=== PATIENT | male | born 1975 | race African-American/Black ===

== ENCOUNTER 2017-03-12 03:00 | Emergency (ER) | payer SELFPAY ==
[~2017-03-12] VITALS: Ht 157.5 cm; Wt 75.0 kg
[~2017-03-12 03:00] MED LIST: AMLO10 PO; HYDR-2768 PO; RIVA10 PO
[2017-03-12 03:01] VITALS: BP 156/111; PULSE 101; RESP 16; TEMP 98; O2SAT 97
[2017-03-12 03:15] VITALS: O2SAT 99
[2017-03-12 03:17] VITALS: BP 151/116; PULSE 100; RESP 16; O2SAT 96
[2017-03-12] MEDS ORDERED: SODIUM CHLORIDE 0.9% FLUSH 10 ML FLUSH IVF PRN ×2 (04:00)
[2017-03-12 04:31] LABS: AUTOMATED NEUTROPHIL # 3.8 TH/MM3 (1.8-7.7); BASOPHIL % 0.7 % (0.0-2.0); EOSINOPHIL # 0.4 TH/MM3 (0-0.4); EOSINOPHIL % 5.2 % (0.0-4.0); HEMATOCRIT 40.6 % (39.0-51.0); HEMOGLOBIN 13.1 GM/DL (13.0-17.0); LYMPHOCYTE # 2.4 TH/MM3 (1.0-4.8); MEAN CELL VOLUME 78.2 FL (80.0-100.0); MEAN CORPUSCULAR HEMOGLOBIN 25.3 PG (27.0-34.0); MEAN CORPUSCULAR HGB CONC 32.4 % (32.0-36.0); MEAN PLATELET VOLUME 9.6 FL (7.0-11.0); MONO % 3.7 % (0.0-8.0); MONOCYTE # 0.3 TH/MM3 (0-0.9); NEUT % 55.4 % (16.0-70.0); PLATELET COUNT 334 TH/MM3 (150-450); RED BLOOD COUNT 5.19 MIL/MM3 (4.50-5.90); RED CELL DISTRIBUTION WIDTH 16.8 % (11.6-17.2); WHITE BLOOD COUNT 6.8 TH/MM3 (4.0-11.0)
[2017-03-12 04:42] LABS: ALBUMIN 3.9 GM/DL (3.4-5.0); AST (GOT) 35 U/L (15-37); BICARBONATE 25.2 MEQ/L (21.0-32.0); BLOOD UREA NITROGEN 18 MG/DL (7-18); CALCIUM 9.5 MG/DL (8.5-10.1); CHLORIDE 105 MEQ/L (98-107); GLOMERULAR FILTRATION RATE 90 ML/MIN (>89); GLUCOSE,RANDOM 100 MG/DL (74-106); SODIUM (NA) 139 MEQ/L (136-145)
[2017-03-12 04:43] LABS: ALT (GPT) 100 U/L (12-78)
[2017-03-12 04:47] LABS: ALKALINE PHOSPHATASE 93 U/L (45-117); TOTAL BILIRUBIN ADULT 0.4 MG/DL (0.2-1.0); TOTAL PROTEIN 7.9 GM/DL (6.4-8.2); TROPONIN I 0.05 NG/ML (0.02-0.05)
--- NOTE | 2017-03-12 04:52 | RADRPT ---
EXAM DATE/TIME: 03/12/2017 04:03 [facility] COMPARISON: CHEST SINGLE AP, August 20, 2014, 12:55. INDICATIONS : Chest pain. MEDICAL HISTORY : None. SURGICAL HISTORY : None. ENCOUNTER: Initial ACUITY: 2 days PAIN SCORE: 9/10 LOCATION: Bilateral chest FINDINGS: Hazy parenchymal opacities are seen fairly diffusely of both lungs, left slightly worse and right. Th ere is mild cardiomegaly. I don't see a large effusion. No pneumothorax. CONCLUSION: Bilateral hazy infiltrates, probably on the basis of mild failure versus atypical pneumonia. John Rubalcava MD on March 12, 2017 at 4:50 Board Certified Radiologist. This report was verified electronically.
[2017-03-12] MEDS ORDERED: FUROSEMIDE 40 MG/4 ML VIAL IV PUSH ONE ×2 (05:15)
[2017-03-12 05:19] VITALS: BP_SYST 141; BP_SYST 148; BP_DIAS 103; BP_DIAS 113; PULSE 102; RESP 18; O2SAT 95
[2017-03-12] MEDS ORDERED: FURO1TAB62 PO ×2 (05:20)
[2017-03-12] MEDS ORDERED: LISI40TA PO ×2 (05:20)
[2017-03-12] MEDS ORDERED: HYDR-3799 PO ×2 (05:20)
[2017-03-12] MEDS ORDERED: CARV3.12 PO ×2 (05:20)
[2017-03-12] MEDS ORDERED: ATOR40TA16 PO ×2 (05:20)
[2017-03-12] MEDS ORDERED: ASPI81TA11 PO ×2 (05:20)
[2017-03-12] MEDS ORDERED: ISOS30TA3 PO ×2 (05:20)
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
--- NOTE | 2017-03-12 19:29 | EKG ---
Date Performed: 03/12/2017 Time Performed: 03:19:46 PTAGE: 41 years EKG: Sinus rhythm LEFT ATRIAL ENLARGEMENT BORDERLINE LEFT AXIS DEVIATION POSSIBLE LEFT VENTRICULAR HYPERTROPHY MODERAT E T-WAVE ABNORMALITY, CONSIDER ANTERIOR ISCHEMIA MODERATE T-WAVE ABNORMALITY, CONSIDER INFERIOR ISCHE YA ABNORMAL ECG PREVIOUS TRACING : 06/25/2014 22.14 Compared to the previous tracing ST/T wave changes are less prominent DOCTOR: Ming Jamil Interpretating Date/Time 03/12/2017 19:27:13
== END 2017-03-12 05:34 | disposition home or self-care (01) ==
LOC: NEPE 03:00
DX: I11.0 Hypertensive heart disease with heart failure (principal); I50.9 Heart failure, unspecified; Z72.0 Tobacco use
CPT/HCPCS: 71010; 80053; 83880; 84484; 85025; 93005; 96374; 99285; J1940

== ENCOUNTER 2017-04-19 08:43 | Emergency (ER) | payer SELFPAY ==
[~2017-04-19] VITALS: Ht 157.5 cm; Wt 73.0 kg
[~2017-04-19 08:43] MED LIST changes: -AMLO10 PO; +ASPI81TA23 PO; +ATOR40TA16 PO; +CARV3.12 PO; +FURO1TAB62 PO; -HYDR-2768 PO; +HYDR-3799 PO; +ISOS30TA3 PO; +LISI40TA PO; -RIVA10 PO
[2017-04-19 08:44] VITALS: BP 157/107; PULSE 88; RESP 18; TEMP 97.9; O2SAT 95
[2017-04-19 08:55] VITALS: BP 156/114; PULSE 96; RESP 22; O2SAT 97
[2017-04-19] MEDS ORDERED: SODIUM CHLORIDE 0.9% FLUSH 10 ML FLUSH IVF PRN (09:15)
[2017-04-19 09:36] VITALS: RESP 16; O2SAT 97
[2017-04-19 09:51] LABS: AUTOMATED NEUTROPHIL # 3.3 TH/MM3 (1.8-7.7); BASOPHIL % 0.8 % (0.0-2.0); EOSINOPHIL # 0.2 TH/MM3 (0-0.4); EOSINOPHIL % 4.6 % (0.0-4.0); HEMATOCRIT 37.1 % (39.0-51.0); HEMO FLAGS DIFF FINAL; LYMPH % 26.7 % (9.0-44.0); LYMPHOCYTE # 1.4 TH/MM3 (1.0-4.8); MEAN CELL VOLUME 78.5 FL (80.0-100.0); MEAN CORPUSCULAR HEMOGLOBIN 25.4 PG (27.0-34.0); MEAN CORPUSCULAR HGB CONC 32.3 % (32.0-36.0); MONO % 5.2 % (0.0-8.0); NEUT % 62.7 % (16.0-70.0); PLATELET COUNT 271 TH/MM3 (150-450); RED BLOOD COUNT 4.73 MIL/MM3 (4.50-5.90); RED CELL DISTRIBUTION WIDTH 16.8 % (11.6-17.2); WHITE BLOOD COUNT 5.3 TH/MM3 (4.0-11.0)
--- NOTE | 2017-04-19 09:56 | RADRPT ---
EXAM DATE/TIME: 04/19/2017 09:12 [facility] COMPARISON: CHEST SINGLE AP, March 12, 2017, 4:03. INDICATIONS : Shortness of breath and left sided rib pain. MEDICAL HISTORY : None. SURGICAL HISTORY : None. ENCOUNTER: Initial ACUITY: 3 days PAIN SCORE: 5/10 LOCATION: Bilateral chest FINDINGS: Redemonstration of patchy bilateral lower lung zone airspace disease. Cardiac silhouette is mildly en larged. There is no significant pneumothorax. No displaced rib fractures are demonstrated. CONCLUSION: 1. Stable patchy bilateral lower lung zone airspace disease. 2. No significant interval change. Kemal Lucero MD on April 19, 2017 at 9:17 Board Certified Radiologist. This report was verified electronically.
[2017-04-19 10:09] LABS: ANION GAP 6 MEQ/L (5-15); AST (GOT) 68 U/L (15-37); BICARBONATE 25.6 MEQ/L (21.0-32.0); BLOOD UREA NITROGEN 25 MG/DL (7-18); CHLORIDE 108 MEQ/L (98-107); GLOMERULAR FILTRATION RATE 78 ML/MIN (>89); MAGNESIUM 1.8 MG/DL (1.5-2.5); POTASSIUM 4.3 MEQ/L (3.5-5.1); SODIUM (NA) 140 MEQ/L (136-145)
[2017-04-19 10:15] LABS: ALKALINE PHOSPHATASE 109 U/L (45-117); ALT (GPT) 99 U/L (12-78); CREATINE KINASE 186 U/L (39-308); TOTAL BILIRUBIN ADULT 0.4 MG/DL (0.2-1.0)
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
--- NOTE | 2017-04-19 19:54 | EKG ---
Date Performed: 04/19/2017 Time Performed: 09:32:38 PTAGE: 41 years EKG: Sinus rhythm LEFT ATRIAL ENLARGEMENT BORDERLINE LEFT AXIS DEVIATION MODERATE T-WAVE ABNORMALITY, CONSIDER ANTEROL ATERAL ISCHEMIA MODERATE T-WAVE ABNORMALITY, CONSIDER INFERIOR ISCHEMIA Since previous tracing, no si gnificant change noted ABNORMAL ECG PREVIOUS TRACING : 03/12/2017 03.19 DOCTOR: Hakeem Collado Interpretating Date/Time 04/19/2017 19:53:06
== END 2017-04-19 11:26 | disposition left against medical advice (07) ==
LOC: NEPE 08:43
DX: R06.02 Shortness of breath (principal); R94.31 Abnormal electrocardiogram [ECG] [EKG]; I51.7 Cardiomegaly; I11.0 Hypertensive heart disease with heart failure; I50.9 Heart failure, unspecified; Z72.0 Tobacco use; Z79.82 Long term (current) use of aspirin; Z79.899 Other long term (current) drug therapy
CPT/HCPCS: 71010; 80053; 82550; 82552; 83735; 83880; 84484; 85025; 93005; 99285

== ENCOUNTER 2017-05-13 01:54 | Inpatient (IN) | payer SELFPAY ==
[~2017-05-13] VITALS: Ht 167.6 cm; Wt 68.0 kg
[2017-05-13] VITALS (7 sets, daily range): BP systolic 123–154; BP diastolic 80–105; PULSE 97–108; RESP 15–18; TEMP 96.8–99.7; O2SAT 96–100
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
[2017-05-13] MEDS ORDERED: TETANUS/DIPHTHERIA TOXOID ADULT 0.5 ML VIAL IM ONE (02:15)
[2017-05-13] MEDS ORDERED: LIDOCAINE 2%/EPINEPHrine 1:100,000 20ML MDV NERV BLOCK ONE (02:30)
[2017-05-13 02:31] LABS: AUTOMATED NEUTROPHIL # 5.1 TH/MM3 (1.8-7.7); BASOPHIL % 0.6 % (0.0-2.0); EOSINOPHIL # 0.3 TH/MM3 (0-0.4); HEMATOCRIT 32.6 % (39.0-51.0); HEMOGLOBIN 10.4 GM/DL (13.0-17.0); LYMPH % 22.7 % (9.0-44.0); LYMPHOCYTE # 1.7 TH/MM3 (1.0-4.8); MEAN CELL VOLUME 78.2 FL (80.0-100.0); MEAN CORPUSCULAR HEMOGLOBIN 24.8 PG (27.0-34.0); MEAN CORPUSCULAR HGB CONC 31.8 % (32.0-36.0); MEAN PLATELET VOLUME 9.2 FL (7.0-11.0); MONO % 5.4 % (0.0-8.0); MONOCYTE # 0.4 TH/MM3 (0-0.9); NEUT % 67.3 % (16.0-70.0); PLATELET COUNT 264 TH/MM3 (150-450); RED BLOOD COUNT 4.18 MIL/MM3 (4.50-5.90); RED CELL DISTRIBUTION WIDTH 16.6 % (11.6-17.2); WHITE BLOOD COUNT 7.5 TH/MM3 (4.0-11.0)
[2017-05-13 02:54] LABS: ALBUMIN 3.3 GM/DL (3.4-5.0); ALT (GPT) 239 U/L (12-78); AST (GOT) 255 U/L (15-37); BICARBONATE 26.2 MEQ/L (21.0-32.0); BLOOD UREA NITROGEN 23 MG/DL (7-18); CALCIUM 8.8 MG/DL (8.5-10.1); CHLORIDE 110 MEQ/L (98-107); CREATININE 1.23 MG/DL (0.60-1.30); GLOMERULAR FILTRATION RATE 79 ML/MIN (>89); GLUCOSE,RANDOM 120 MG/DL (74-106); SODIUM (NA) 143 MEQ/L (136-145)
[2017-05-13 02:55] LABS: ALKALINE PHOSPHATASE 87 U/L (45-117); TOTAL BILIRUBIN ADULT 0.2 MG/DL (0.2-1.0); TOTAL PROTEIN 6.6 GM/DL (6.4-8.2)
[2017-05-13] MEDS ORDERED: IOHEXOL 350 MG/ML 10 ML VIAL (for RAD DIAG) IVCONTRAST ONE (03:10)
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
[2017-05-13] MEDS ORDERED: ONDANSETRON HCL 4 MG/2 ML VIAL IV PUSH PRN (05:30)
[2017-05-13] MEDS ORDERED: MISCELLANEOUS NURSING INFORMATION XX SCH (05:30)
[2017-05-13] MEDS ORDERED: ACETAMINOPHEN/HYDROcodone 325 MG/5 MG TAB PO PRN ×2 (05:30)
[2017-05-13] MEDS ORDERED: ENALAPRILAT 1.25 MG/ML VIAL IV PUSH PRN (05:30)
[2017-05-13] MEDS ORDERED: SODIUM CHLORIDE 0.9% FLUSH 10 ML FLUSH IV FLUSH PRN (05:30)
[2017-05-13] MEDS ORDERED: CHLORHEXIDINE GLUCONATE 2 % 1 PACK (2 CLOTHS) TOP PRN (05:30)
[2017-05-13] MEDS ORDERED: MORPHINE SULFATE 2 MG/ML INJ IV PUSH PRN (05:45)
[2017-05-13] MEDS: SODIUM CHLOR 0.9% 1000 ML INJ 1,000 ML IV SCH ×3 (06:12→19:41)
--- NOTE | 2017-05-13 06:12 | RADRPT ---
EXAM DATE/TIME: 05/13/2017 05:45 [facility] COMPARISON: CHEST SINGLE AP, April 19, 2017, 9:12. INDICATIONS : Shortness of breath. MEDICAL HISTORY : Hypertension. Congestive heart failure. SURGICAL HISTORY : None. ENCOUNTER: Initial ACUITY: 1 day PAIN SCORE: 0/10 LOCATION: Bilateral chest FINDINGS: There is improvement in pulmonary edema since the prior exam with residual edema remaining. The rest of the examination has not significantly changed. CONCLUSION: Improvement in pulmonary edema. Archana Cross MD on May 13, 2017 at 6:10 Board Certified Radiologist. This report was verified electronically.
[2017-05-13] MEDS: PANTOPRAZOLE SODIUM 40 MG VIAL IVP SCH (06:13)
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
[2017-05-13 08:38] LABS: AUTOMATED NEUTROPHIL # 6.2 TH/MM3 (1.8-7.7); BASOPHIL % 0.6 % (0.0-2.0); EOSINOPHIL # 0.1 TH/MM3 (0-0.4); EOSINOPHIL % 0.9 % (0.0-4.0); HEMATOCRIT 35.5 % (39.0-51.0); HEMOGLOBIN 11.4 GM/DL (13.0-17.0); LYMPHOCYTE # 1.3 TH/MM3 (1.0-4.8); MEAN CELL VOLUME 77.2 FL (80.0-100.0); MEAN CORPUSCULAR HEMOGLOBIN 24.9 PG (27.0-34.0); MEAN CORPUSCULAR HGB CONC 32.2 % (32.0-36.0); MEAN PLATELET VOLUME 9.2 FL (7.0-11.0); MONOCYTE # 0.6 TH/MM3 (0-0.9); NEUT % 75.5 % (16.0-70.0); PLATELET COUNT 283 TH/MM3 (150-450); RED BLOOD COUNT 4.59 MIL/MM3 (4.50-5.90); RED CELL DISTRIBUTION WIDTH 16.3 % (11.6-17.2); WHITE BLOOD COUNT 8.2 TH/MM3 (4.0-11.0)
[2017-05-13] MEDS: DOCUSATE SODIUM 100 MG CAP PO SCH ×2 (08:41→19:42)
[2017-05-13 09:17] LABS: ALBUMIN 3.2 GM/DL (3.4-5.0); ALKALINE PHOSPHATASE 82 U/L (45-117); ALT (GPT) 231 U/L (12-78); AST (GOT) 193 U/L (15-37); BICARBONATE 25.4 MEQ/L (21.0-32.0); BLOOD UREA NITROGEN 15 MG/DL (7-18); CREATININE 1.02 MG/DL (0.60-1.30); GLOMERULAR FILTRATION RATE 99 ML/MIN (>89); GLUCOSE,RANDOM 100 MG/DL (74-106); TOTAL BILIRUBIN ADULT 0.3 MG/DL (0.2-1.0); TOTAL PROTEIN 7.1 GM/DL (6.4-8.2)
[2017-05-13 09:27] LABS: SODIUM (NA) 140 MEQ/L (136-145)
[2017-05-13 09:28] LABS: CHLORIDE 107 MEQ/L (98-107)
[2017-05-13 13:27] LABS: HEMATOCRIT 36.1 % (39.0-51.0); HEMOGLOBIN 11.5 GM/DL (13.0-17.0)
[2017-05-13] MEDS ORDERED: DOCU1CAP39 PO (14:48)
[2017-05-13] MEDS ORDERED: MAGN30S PO (14:48)
[2017-05-13] MEDS: FUROSEMIDE 20 MG TAB PO SCH (15:32)
[2017-05-13] MEDS: LISINOPRIL 20 MG TAB PO SCH (15:32)
[2017-05-13] MEDS: ISOSORBIDE MONONITRATE 30 MG TAB PO SCH (15:32)
[2017-05-13] MEDS: hydrALAZINE HCL 25 MG TAB PO SCH (18:21)
[2017-05-13 19:32] LABS: HEMATOCRIT 36.2 % (39.0-51.0); HEMOGLOBIN 11.9 GM/DL (13.0-17.0)
[2017-05-13] MEDS: MAGNESIUM HYDROXIDE SUSP 30 ML CUP PO PRN (19:42)
[2017-05-13] MEDS: CARVEDILOL 3.125 MG TAB PO SCH (19:42)
[2017-05-13] MEDS ORDERED: ATORVASTATIN 40 MG TAB PO SCH (21:00)
[2017-05-14] VITALS (7 sets, daily range): BP systolic 122–139; BP diastolic 78–104; PULSE 90–105; RESP 16–18; TEMP 96.7–98.6; O2SAT 98–100
[2017-05-14 00:27] LABS: HEMATOCRIT 35.1 % (39.0-51.0); HEMOGLOBIN 11.1 GM/DL (13.0-17.0)
[2017-05-14] MEDS ORDERED: CHLORHEXIDINE GLUCONATE 2 % 1 PACK (2 CLOTHS) TOP SCH (04:00)
[2017-05-14] MEDS: SODIUM CHLOR 0.9% 1000 ML INJ 1,000 ML IV SCH (04:59)
[2017-05-14] MEDS: PANTOPRAZOLE SODIUM 40 MG VIAL IVP SCH (04:59)
[2017-05-14 05:25] LABS: HEMATOCRIT 35.4 % (39.0-51.0); HEMOGLOBIN 11.3 GM/DL (13.0-17.0)
[2017-05-14] MEDS: ISOSORBIDE MONONITRATE 30 MG TAB PO SCH (07:57)
[2017-05-14] MEDS: MAGNESIUM HYDROXIDE SUSP 30 ML CUP PO PRN (07:57)
[2017-05-14] MEDS: DOCUSATE SODIUM 100 MG CAP PO SCH (07:57)
[2017-05-14] MEDS: hydrALAZINE HCL 25 MG TAB PO SCH ×3 (07:58→16:02)
[2017-05-14] MEDS: FUROSEMIDE 20 MG TAB PO SCH (07:58)
[2017-05-14] MEDS: LISINOPRIL 20 MG TAB PO SCH (07:58)
[2017-05-14] MEDS: CARVEDILOL 3.125 MG TAB PO SCH (07:58)
[2017-05-14] MEDS ORDERED: HYDR-3516 PO (12:45)
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
[2017-05-15] MEDS ORDERED: PANTOPRAZOLE SOD 40 MG DELAYED RELEASE TAB PO SCH (08:00)
== END 2017-05-14 16:15 | disposition home or self-care (01) | DRG 605 ==
LOC: NEPE 01:54 → NEDA 05:12 → N06A 06:16
PROVIDERS: ADMIT Surgery; ATTEND Surgery
PROC: 0HQ0XZZ Repair Scalp Skin, External Approach (ICD-10-PCS; principal; 2017-05-13)
DX: S01.01XA Laceration without foreign body of scalp, initial encounter (principal); I11.0 Hypertensive heart disease with heart failure; S36.113A Laceration of liver, unspecified degree, initial encounter; I50.9 Heart failure, unspecified; F17.210 Nicotine dependence, cigarettes, uncomplicated; K59.00 Constipation, unspecified; Y00.XXXA Assault by blunt object, initial encounter
CPT/HCPCS: 12002; 70450; 71010; 74177; 80053; 85014; 85018; 85025; 85610; 86850; 86900; 86901; 90471; 90714; C9113; J7030; Q9967